=== PATIENT | female | born 1975 ===

== ENCOUNTER 2017-06-05 21:24 | Emergency (ER) | payer SELFPAY ==
[2017-06-05 21:36] VITALS: BP 131/84; PULSE 96; RESP 16; TEMP 98.5; O2SAT 100
[2017-06-05] MEDS ORDERED: Oxycodone/Acetaminophen 5/325 mg Tab PO STA (22:57)
[2017-06-05] MEDS ORDERED: Oxycodone/Acetaminophen 5/325 mg Tab ONE (23:04)
--- NOTE | 2017-06-06 00:22 | ED PDOC ---
Lower Extremity Pain/Injury Chief Complaint (Provider): Left knee pain, fall <Nicolasa Everett - Last Filed: 06/06/17 00:20> <Dee Escalante PA-C - Last Filed: 06/07/17 09:45> Time Seen by Provider: 06/05/17 22:16 Chief Complaint (Nursing): Lower Extremity Problem/Injury Past Medical History Vital Signs: Last Vital Signs Temp 98.5 F 06/05/17 21:33 Pulse 96 H 06/05/17 21:33 Resp 16 06/05/17 21:33 BP 131/84 06/05/17 21:33 Pulse Ox 100 06/05/17 21:33 <Nicolasa Everett - Last Filed: 06/06/17 00:20> Vital Signs: Last Vital Signs Temp 98.5 F 06/05/17 21:33 Pulse 96 H 06/05/17 21:33 Resp 16 06/05/17 21:33 BP 131/84 06/05/17 21:33 Pulse Ox 100 06/06/17 00:22 <Dee Escalante PA-C - Last Filed: 06/07/17 09:45> - Home Medications Home Medications: Ambulatory Orders Medication Instructions Recorded oxyCODONE/Acetaminophen [Percocet 1 ea PO Q6H PRN #10 tab 06/06/17 5/325 mg Tab] - Allergies Allergies/Adverse Reactions: Allergies Allergy/AdvReac Type Severity Reaction Status Date / Time amoxicillin Allergy ANAPHYLAXIS Verified 06/05/17 21:33 aspirin Allergy ANAPHYLAXIS Verified 06/05/17 21:33 Penicillins Allergy ANAPHYLAXIS Verified 06/05/17 21:33 - ECG O2 Sat by Pulse Oximetry: 100 <Nicolasa Everett - Last Filed: 06/06/17 00:20> Medical Decision Making Medical Decision Making: XR L knee : IMPRESSION: There is a mild suprapatellar bursa effusion. No acute bony findings. A small sclerotic lesion is seen the proximal diaphysis left tibia. The patient's symptomatic here, follow-up nuclear bone scan is advised though this is likely a nonaggressive bone lesion. Pt called, notified of XR findings, states that she has a appointment set up with Dr. Chow, advised to f/u with him regarding XR results. <Dee Escalante PA-C - Last Filed: 06/07/17 09:45> Disposition - Patient ED Disposition Is Patient to be Admitted: No Counseled Patient/Family Regarding: Diagnosis, Need For Followup, Rx Given - Disposition Disposition: Routine/Home Disposition Time: 00:21 <Nicolasa Everett - Last Filed: 06/06/17 00:20> <Dee Escalante PA-C - Last Filed: 06/07/17 09:45> - Clinical Impression Clinical Impression: Knee pain - Disposition Referrals: Ruddy Chow III, MD [Staff Provider] - Condition: GOOD Prescriptions: oxyCODONE/Acetaminophen [Percocet 5/325 mg Tab] 1 ea PO Q6H PRN #10 tab PRN Reason: Pain, Severe (8-10) Instructions: Joint Pain Forms: [facility] (Latvian)
--- NOTE | 2017-06-06 11:42 | RAD ---
PROCEDURE: Left Knee Radiographs. HISTORY: Pain. COMPARISON: None. FINDINGS: BONES: Normal. No fractureNo acute fractures identified. No destructive bony lesion is seen involving the patella or the visualized distal femur. At the proximal medial diaphysis of the left tibia, there is a sclerotic lesion appearing small which is likely nonaggressive. If there is pain related to this location follow-up nuclear bone scan is recommended. There is minimal thickening of the cortex adjacent to this lesion in this may represent an ossified nonossifying fibroma or large bone island as well as other etiologies. JOINTS: Cortical sclerosis and limited osteophyte development is seen at the medial and lateral femorotibial as well as patellofemoral compartment compatible with osteoarthritis. JOINT EFFUSION: A mild suprapatellar bursa effusion is identified. OTHER FINDINGS: None. IMPRESSION: There is a mild suprapatellar bursa effusion. No acute bony findings. A small sclerotic lesion is seen the proximal diaphysis left tibia. The patient's symptomatic here, follow-up nuclear bone scan is advised though this is likely a nonaggressive bone lesion.
== END 2017-06-06 00:33 | disposition home or self-care (01) ==
LOC: H.ER 21:24
DX: M25.562 Pain in left knee (principal); W19.XXXA Unspecified fall, initial encounter; Y92.89 Other specified places as the place of occurrence of the external cause; Z88.0 Allergy status to penicillin